=== PATIENT | female | born 1975 | race Two or more races ===

== ENCOUNTER → 2017-09-07 | Outpatient (CLI) | payer BC ==
[~2017-09-07] MED LIST: MORPHINE SULFATE 4 MG/ML DISP.SYRIN.
[2017-09-07] MEDS: MORPHINE SULFATE 4 MG/ML DISP.SYRIN. IV (09:24)
== END | disposition home or self-care (01) ==
LOC: NM 07:20
DX: K80.20 Calculus of gallbladder without cholecystitis without obstruction (principal); K21.9 Gastro-esophageal reflux disease without esophagitis; R93.2 Abnormal findings on diagnostic imaging of liver and biliary tract; Z87.898 Personal history of other specified conditions
CPT/HCPCS: 78226; 96374; 96375; A9537; J2270

== ENCOUNTER 2017-09-11 07:20 | Observation (INO) | payer BC ==
[~2017-09-11 07:20] MED LIST changes: +HYDROmorphone 2 MG/ML VIAL IV; +LIDOCAINE 1% PF 2 ML VIAL. ID; -MORPHINE SULFATE 4 MG/ML DISP.SYRIN.; +ceFAZolin 2GM PREMIX 2 GM/50 ML BAG IV; +fentaNYL PF VIAL 100 MCG/2 ML VIAL IV
[2017-09-11 07:56] LABS: ADD MAN DIFF? NO
[2017-09-11 08:00] LABS: NEG OBC UR NEG; POS OBC UR POS; U PREG PATIENT NEGATIVE (NEG)
[2017-09-11] MEDS: IV RINGERS,LACTATED 1000ML 1,000 ML IV ×2 (08:01)
[2017-09-11 08:02] LABS: BASO # 0.1 x10^3/uL (0.0-0.2); BASO % 1 % (0-3); EOS # 0.3 x10^3/uL (0.0-0.7); EOS % 3 % (0-3); HEMATOCRIT 34.5 % (36.0-47.0); HEMOGLOBIN 11.1 g/dL (12.0-15.5); LYMPH # 2.4 x10^3/uL (1.0-4.8); LYMPH % 28 % (24-48); MEAN CORPUSCULAR HEMOGLOBIN 24 pg (25-35); MEAN CORPUSCULAR HGB CONC 32 g/dL (31-37); MEAN CORPUSCULAR VOLUME 74 fL (79-100); MONO # 0.5 x10^3/uL (0.0-1.1); MONO % 6 % (0-9); NEUT # 5.2 x10^3uL (1.8-7.7); NEUT % 62 % (31-73); PLATELET COUNT 423 x10^3/uL (140-400); RED BLOOD COUNT 4.65 x10^6/uL (3.50-5.40); RED CELL DISTRIBUTION WIDTH 17.2 % (11.5-14.5); WHITE BLOOD COUNT 8.4 x10^3/uL (4.0-11.0)
[2017-09-11 08:10] LABS: ANION GAP 9 (6-14); BLOOD UREA NITROGEN 15 mg/dL (7-20); BUN/CREATININE RATIO 21 (6-20); CARBON DIOXIDE 27 mmol/L (21-32); CHLORIDE 100 mmol/L (98-107); CREATININE 0.7 mg/dL (0.6-1.0); GFR 91.8; GLUCOSE 104 mg/dL (70-99); POTASSIUM 3.9 mmol/L (3.5-5.1); PROTHROMBIN TIME PATIENT 12.5 SEC (11.7-14.0); SODIUM 136 mmol/L (136-145)
[2017-09-11 08:16] LABS: ALBUMIN 3.5 g/dL (3.4-5.0); ALBUMIN/GLOBULIN RATIO 0.7 (1.0-1.7); ALK PHOS 96 U/L (46-116); ALT (SGPT) 29 U/L (14-59); AST (SGOT) 20 U/L (15-37); TOTAL BILIRUBIN 0.3 mg/dL (0.2-1.0); TOTAL PROTEIN 8.2 g/dL (6.4-8.2)
[2017-09-11] MEDS ORDERED: PROPOFOL 20 ML IV ×2 (08:38)
[2017-09-11] MEDS ORDERED: ROCURONIUM 50 MG/5 ML VIAL. ×2 (08:38)
[2017-09-11] MEDS ORDERED: LIDOCAINE 2% PF Vial for OR 5 ML VIAL. ×2 (08:38)
[2017-09-11] MEDS ORDERED: fentaNYL PF VIAL 100 MCG/2 ML VIAL ×4 (08:39→09:31)
[2017-09-11] MEDS ORDERED: MIDAZOLAM HCL/PF 2 MG/2 ML VIAL. ×2 (08:39)
[2017-09-11] MEDS ORDERED: SUCCINYLCHOLINE 200 MG/10 ML VIAL. ×2 (08:52)
[2017-09-11] MEDS ORDERED: LIDOCAINE 1% PF 5 ML VIAL. ×2 (09:23)
[2017-09-11] MEDS ORDERED: PHENYLEPHRINE in 0.9% NACL PF 1 MG/10 ML SYRINGE. IV (09:46)
[2017-09-11] MEDS: IOHEXOL 300 MG/ML 100ML VIAL. ×2 (09:57)
[2017-09-11] MEDS: BUPIVACAINE-EPI 0.25%-1:200000 50 ML VIAL. ×2 (09:57)
[2017-09-11] MEDS ORDERED: NEOSTIGMINE METHYLSULFATE 5 MG/5 ML SYRINGE. ×2 (10:19)
[2017-09-11] MEDS ORDERED: GLYCOPYRROLATE 1 MG/5 ML VIAL. ×2 (10:19)
[2017-09-11] MEDS: MORPHINE SULFATE 2 MG/ML DISP.SYRIN. IV ×6 (13:03→14:03)
[2017-09-11] MEDS: PROCHLORPERAZINE 10 MG/2 ML VIAL. IV ×2 (13:08)
[2017-09-11] MEDS ORDERED: 0.9 % SODIUM CHLORIDE 10 ML DISP.SYRIN. IV ×2 (13:15)
[2017-09-11] MEDS ORDERED: DEXTROSE 50% 25 GM / 50ML DISP.SYRIN. IV ×2 (13:15)
[2017-09-11] MEDS ORDERED: ceFAZolin SODIUM 1 GM in IV DEXTROSE 5% 50 ML IV (13:15)
[2017-09-11 13:22] LABS: POC GLUCOSE 163 mg/dL (70-99)
[2017-09-11] MEDS: oxyCODONE/APAP 5/325 1 TAB TABLET PO ×4 (14:56→23:19)
[2017-09-11] MEDS: ONDANSETRON PF 4 MG/2 ML VIAL. IV ×4 (14:59→21:16)
[2017-09-11] MEDS: POTASSIUM CL 20MEQ-0.45% NACL 1,000 ML IV ×4 (15:15→23:18)
[2017-09-11] MEDS: ceFAZolin SODIUM IV Push 1 GM VIAL. IVP ×4 (15:16→23:18)
[2017-09-11 17:29] LABS: POC GLUCOSE 164 mg/dL (70-99)
[2017-09-11] MEDS: DOCUSATE SODIUM 100 MG CAPSULE. PO ×2 (21:16)
[2017-09-11] MEDS: FAMOTIDINE 20 MG/2 ML VIAL IVP ×2 (21:16)
[2017-09-11 21:18] LABS: POC GLUCOSE 147 mg/dL (70-99)
[2017-09-12 05:42] LABS: ADD MAN DIFF? NO
[2017-09-12 05:48] LABS: BASO # 0.1 x10^3/uL (0.0-0.2); BASO % 1 % (0-3); EOS % 0 % (0-3); HEMATOCRIT 31.3 % (36.0-47.0); HEMOGLOBIN 9.8 g/dL (12.0-15.5); LYMPH # 2.4 x10^3/uL (1.0-4.8); LYMPH % 18 % (24-48); MEAN CORPUSCULAR HEMOGLOBIN 23 pg (25-35); MEAN CORPUSCULAR HGB CONC 32 g/dL (31-37); MEAN CORPUSCULAR VOLUME 74 fL (79-100); MONO # 0.9 x10^3/uL (0.0-1.1); MONO % 7 % (0-9); NEUT # 9.9 x10^3uL (1.8-7.7); NEUT % 75 % (31-73); PLATELET COUNT 408 x10^3/uL (140-400); RED BLOOD COUNT 4.22 x10^6/uL (3.50-5.40); RED CELL DISTRIBUTION WIDTH 17.2 % (11.5-14.5); WHITE BLOOD COUNT 13.3 x10^3/uL (4.0-11.0)
[2017-09-12 06:05] LABS: ANION GAP 10 (6-14); BLOOD UREA NITROGEN 10 mg/dL (7-20); BUN/CREATININE RATIO 17 (6-20); CALCIUM 8.6 mg/dL (8.5-10.1); CARBON DIOXIDE 25 mmol/L (21-32); CHLORIDE 101 mmol/L (98-107); CREATININE 0.6 mg/dL (0.6-1.0); GFR 109.6; GLUCOSE 106 mg/dL (70-99); POTASSIUM 3.7 mmol/L (3.5-5.1); SODIUM 136 mmol/L (136-145)
[2017-09-12 06:11] LABS: ALBUMIN/GLOBULIN RATIO 0.7 (1.0-1.7); ALK PHOS 70 U/L (46-116); ALT (SGPT) 41 U/L (14-59); AST (SGOT) 40 U/L (15-37); TOTAL BILIRUBIN 0.3 mg/dL (0.2-1.0); TOTAL PROTEIN 7.2 g/dL (6.4-8.2)
[2017-09-12] MEDS: oxyCODONE/APAP 5/325 1 TAB TABLET PO ×2 (06:29)
[2017-09-12] MEDS: ceFAZolin SODIUM IV Push 1 GM VIAL. IVP ×2 (06:30)
[2017-09-12] MEDS: DOCUSATE SODIUM 100 MG CAPSULE. PO ×2 (08:23)
[2017-09-12] MEDS: FAMOTIDINE 20 MG/2 ML VIAL IVP ×2 (08:24)
[2017-09-12 08:53] LABS: POC GLUCOSE 102 mg/dL (70-99)
[2017-09-12 11:01] LABS: POC GLUCOSE 109 mg/dL (70-99)
== END 2017-09-12 17:00 | disposition home or self-care (01) ==
LOC: SURG 07:20 → 4 NORTH 13:10
DX: K80.12 Calculus of gallbladder with acute and chronic cholecystitis without obstruction (principal); E11.9 Type 2 diabetes mellitus without complications; E66.9 Obesity, unspecified; Z90.710 Acquired absence of both cervix and uterus
CPT/HCPCS: 36415; 74300; 80053; 81025; 82962; 85025; 85610; 88304; 96365; 96366; 96375; 96376; G0378; G0379; J0330; J0690; J0780; J2250; J2270; J2370; J2405; J2704; J2710; J3010; J3490; J7030; J7120; Q9967; S0028